=== PATIENT | male | born 1955 | race Two or more races ===

== ENCOUNTER 2019-06-10 07:16 | Emergency (ER) | payer OTHER ==
[~2019-06-10] VITALS: Ht 172.7 cm; Wt 85.3 kg
[~2019-06-10 07:16] MED LIST: GLUCOPHAGE XR500 MG PO; OMEPRAZOLE40 MG; PEPCID20 MG PO; ZOCOR20 MG
[2019-06-10] MEDS ORDERED: NORVASC10 MG (08:03)
[2019-06-10] MEDS ORDERED: COZAAR100 MG (08:03)
[2019-06-10] MEDS ORDERED: SKELAXIN800 MG PO (12:27)
[2019-06-10] MEDS ORDERED: ULTRACET PO (12:27)
[2019-06-10] MEDS ORDERED: URIN D.S. TABL1 EACH PO (12:27)
== END 2019-06-10 13:18 | disposition home or self-care (01) ==
LOC: ER 07:16
DX: N39.0 Urinary tract infection, site not specified (principal); R10.32 Left lower quadrant pain; M54.89 Other dorsalgia